=== PATIENT | female | born 1980 | race Caucasian/White ===

== ENCOUNTER 2018-07-10 09:06 | Day surgery (SDC) | payer MEDICARE, MEDICAID, SELFPAY ==
[2018-07-07 08:56] VITALS: BMI 48.6
[2018-07-10] VITALS (12 sets, daily range): BP systolic 97–118; BP diastolic 30–78; PULSE 60–94; RESP 10–20; TEMP 36.2–37.2; O2SAT 94–100; BMI 48.6
--- NOTE | 2018-07-10 | PATH_ITS ---
[facility] Accession Number: [id number] . 01 Material submitted: . UTERUS, BILATERAL FALLOPIAN TUBES . 02 Diagnosis: Uterus with Bilateral Fallopian Tubes, Supracervical Hysterectomy and Bilateral Salpingectomy: Proliferative endometrium with no diagnostic abnormality; Negative for atypical hyperplasia or malignancy. Multiple leiomyomata, up to 0.7 cm as measured on glass slide. Bilateral fallopian tubes with no diagnostic abnormality, no evidence of neoplasm. MRV/07/12/2018 . 02 Electronically signed: . Son Glass MD, PhD, Pathologist NPI- [id number] . 01 Gross description: . Received in formalin, labeled uterus, bilateral fallopian tubes, is a morcellated uterus (58 grams, 11.5 x 7.5 x 3.5 cm in aggregate) and two fimbriated fallopian tubes (tube #1: length-3.3 cm, diameter-0.5 cm; tube #2: length-2.7 cm, diameter-0.3 cm). The cervix and ovaries are absent. The specimen cannot be oriented and the endometrium and myometrium cannot be grossly measured. The parenchyma is brennan-white with a focally whorled appearance. The serosa is brennan smooth and shiny. The fallopian tubes have cabrera-purple smooth shiny serosa and brennan unremarkable lumens. Section code: (A1-A3) parenchyma, account representative; (A4) fallopian tube #1, account representative serial sections; (A5) fimbria #1, bivalved, entirely submitted; (A6) fallopian tube #2, account representative serial sections; (A7) fimbria #2, bivalved, entirely submitted. ([id number]) /MRV . 02 Pathologist provided ICD-10: D25.9, N92.0 . 02 [facility] . [id number] Performed at: 01 [facility] [address] [id number] MD Chu Jarrett MD Phone: [phone] Performed at: 02 [facility] [address] [place], [place] [id number] MD Laura Snyder MD Phone: [phone]
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
[2018-07-10] MEDS: LACTATED RINGERS 1,000 ML 100 ML IV ×3 (10:17→23:47)
--- NOTE | 2018-07-10 10:48 | SUR.PREOP ---
per dr araiza glucose finger stick not needed
--- NOTE | 2018-07-10 11:05 | PM.PREOP ---
Pre-operative Note Interval Note Pre-op Check: Yes History & Physical exam performed today by Physician Changes: No
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
[2018-07-10] MEDS: CEFAZOLIN 2 GM/100 ML FROZ.PIGGY IV (11:28)
--- NOTE | 2018-07-10 11:56 | SUR.OPER ---
Lithotomy on padded OR bed. Comer Pad Positioner under torso. Head on pillow, arms padded and tucked at sides. Legs secured in padded yellow fins stirrups. Lithotomy on padded OR bed. Comer Pad Positioner under torso. Head on pillow, arms padded and tucked at sides. Legs secured in padded yellow fins stirrups.
[2018-07-10] MEDS: BUPIVACAINE 0.5% W/ EPI (PF) VIAL 30 ML INJ (12:13)
[2018-07-10] MEDS: ROPIVACAINE 0.2% PF 2 MG/ML 10ML AMP 10 ML INJ (12:15)
[2018-07-10] MEDS: KETOROLAC 30 MG/ML VIAL IV ×3 (12:35→23:47)
[2018-07-10] MEDS: ACETAMINOPHEN IV 1,000 MG/100 ML VIAL 400 MG IV (12:40)
[2018-07-10] MEDS: HYDROMORPHONE 2 MG INJ 0.5 MG IV (13:32)
--- NOTE | 2018-07-10 14:07 | PC.NURSE ---
POST OP ARRIVAL 1400 - pt is awake, states some mild discomfort and point to transverse lower abd area, 2x2 w/telfa x3 are cdi, abd soft, denies nausea, catrachito ice chips, pt has concerns re blood clots as had hx of mult small PE several years ago, no longer on blood thinner past 3 years, discussed jennifer scd on now, ra 98%, bp 100/46, p 66.
[2018-07-10] MEDS: TRAZODONE 50 MG TABLET PO (21:59)
[2018-07-10] MEDS: DOCUSATE 250 MG CAPSULE PO (22:00)
--- NOTE | 2018-07-10 22:10 | PC.NURSE ---
assumed care of pt. Pt has been voiding a large amount. Pt uses call light and waits for assistance. pt complains of pain right at lower lap site, suprapubic site. Pt has two spots of blood to left dressing lap site, otherwise c.d.i. Pt given prns. and compliant with med passes. Pt stated torodol helped tremendously. Pt has ice pack to site. given warm blankets. uses call light. will continue to monitor pt for safety.
[2018-07-11] VITALS: BP 101/42; PULSE 86; RESP 18; TEMP 36.8; O2SAT 92
--- NOTE | 2018-07-11 04:58 | PC.NURSE ---
NOC Shift pt AOx4, appropriate, and receptive to care. IND in room and ambulated hallways IND at shift change. Reporting mild 4/10 pain in lower abdomen (suprapubic lap sit is sticking to panus and the pressure on top of the incision is causing pain). There are four lap sites, all covered with gauze and tegaderm; LLQ lap site has some mild shadowing outlined at shift change. Resting through most of NOC shift with a couple trips to BR (will call afterwards to empty hat).
[2018-07-11 05:18] VITALS: BP 103/53; PULSE 64; RESP 18; TEMP 36.7; O2SAT 95
[2018-07-11 07:15] LABS: Add Manual Diff / Slide Review NO; Basophils Percent Auto 0.1 % (0-2); Hematocrit 38.2 % (36-46); Hemoglobin 12.8 g/dL (12.0-16.0); Lymphocytes Percent Auto 5.4 % (25-40); Mean Corpuscular HGB Conc 33.4 % (30-36); Mean Corpuscular Hemoglobin 28.2 PG (26-34); Mean Corpuscular Volume 84.5 fL (80-100); Neutrophils Absolute Auto 14100 /uL (3000-5900); Neutrophils Percent Auto 91.5 % (50-75); Platelet Count 180 X10^3/uL (150-400); Red Blood Cell Count 4.52 X10^6/uL (4.0-5.2); Red Cell Distribution Width 13.4 % (11.6-14.8); White Blood Cell Count 15.4 X10^3/uL (4.5-11.0)
[2018-07-11 07:30] VITALS: BP 97/55; PULSE 56; RESP 18; TEMP 36.8; O2SAT 96
[2018-07-11] MEDS: TRAMADOL 50 MG TABLET 100 MG PO (08:57)
[2018-07-11] MEDS: DOCUSATE 250 MG CAPSULE PO (08:57)
[2018-07-11] MEDS: ESCITALOPRAM 10 MG TABLET 20 MG PO (08:57)
--- NOTE | 2018-07-11 09:08 | PM.GYNOP.1 ---
Operative Date/Time/Diagnoses Date of procedure: 07/10/18 Time of procedure: 12:45 Pre-op diagnosis: Menorrhagia Pelvic pain Polycystic ovaries Post-op diagnosis: same Procedure: Procedures Operation Date: 07/10/18 10:45 Actual Procedures Side Surgeon p Laparoscopic Supracervical Hysterectomy w/bilat salpingectomy Not Applicable Sujey Crenshaw MD Indications: Menorrhagia Pelvic pain Polycystic ovary Surgeon: Sujey Crenshaw Mold Mechanic: Azam Lewis Anesthesia Type: General Operative Notes Findings: 8 week size uterus Polycystic ovaries Tubes status post ligation bilaterally Normal liver, gallbladder, and appendix Closure Type: primary Specimen(s): portion of left tube, portion of right tube and uterus Applied: catheter (Removed at the end of the case) Estimated blood loss (mL): 75 Blood products transfused: none Procedure in detail: The patient was taken to the operating room where she was placed in the dorsal supine position. After adequate general endotracheal anesthesia was achieved, she was placed in the dorsal lithotomy position, and prepped and draped in the usual sterile fashion. A timeout was performed. A bivalve speculum was placed into the vagina and the anterior lip of the cervix grasped with a single-tooth tenaculum. The cervical os was sequentially dilated until the ZUMI uterine manipulator could pass easily into the endometrial cavity. The single-tooth tenaculum was removed from the anterior lip of the cervix, and the bivalve speculum was removed from the vagina. Attention was then turned to the abdomen where 6 mL of half percent Marcaine with epinephrine were injected in the umbilical fold. A 5 mm incision was made. The Verhees needle was placed into the peritoneal cavity, and its placement confirmed by aspiration and drop test. The Verhees needle was removed. A 5 mm trocar was placed without difficulty. 2 other incisions were made midway between the pubic symphysis and umbilicus after 5 mL of half percent Marcaine with epinephrine were injected. These were 5 mm incisions. Two 5 mm trochars were placed under direct visualization. The right tube was grasped with an atraumatic grasper. Using the plasma kinetic with settings of 40 W the mesosolpinx was cauterized and cut all the way down to the cornua of the uterus. The cornua of the uterus was then grasped with an atraumatic grasper. The utero-ovarian ligaments were cauterized and cut. The round ligament and broad ligament was cauterized and cut with plasma kinetic. Hemostasis was achieved. The bladder flap was created using the plasma kinetic with cautery and cut group home across. The uterine arteries on the right side were extensively cauterized with plasma kinetic. All of this was repeated on the left side. The remainder of the bladder flap was created using the plasma kinetic, and the bladder taken down off the lower uterine segment and cervix. Using the L[place]oop, the cervix was amputated from the uterus 2 cm above the uterosacral ligaments, after the ZUMI uterine manipulator was removed from the uterus. There was a small amount of bleeding noted from the posterior edge of the cervix and the left side of the cervix, and this was cauterized for hemostasis. A sponge stick was placed into the vagina. 6 mL of half percent Marcaine with epinephrine were injected above the pubic symphysis. A 12 mm trocar was placed. An Endobag was placed through the suprapubic trocar and the uterus placed into the Endobag. The trocar was removed. The Honag placed into the endobag. The uterus was hand morcellated in approximately 7 pieces. The Endobag was removed from the peritoneal cavity. The pelvis was copiously irrigated with warm normal saline. No bleeding was noted. The instruments were removed from the abdomen. The CO2 was allowed to escape. The suprapubic incision was closed on the fascia with 0 Vicryl. The subcutaneous tissue was closed with 2 simple interrupted sutures of 3 0 Vicryl. All of the incisions were closed with 4-0 undyed Vicryl in a subcuticular fashion. Steri-Strips, 2 x 2, and op site were placed. The moistened sponge stick was removed from the vagina. Sponge, lap, and instrument counts were correct x-2. The patient tolerated the procedure well, was taken to PACU in stable condition. Complications: none Post-operative Condition: stable Disposition: PACU Plan for aftercare: To acute care after recovery
--- NOTE | 2018-07-11 10:14 | PC.NURSE ---
AM NOTE - awakens easily, states slept well last night, 02 sat 92% currently, bs dim, coarse, assist x 1 person w/fww to br w/void and to chair for breakfast, denies discomfort, RT in this am for tmt and to discuss plan for possible home 02 and use of cpap.
--- NOTE | 2018-07-11 10:19 | PC.NURSE ---
Addendum entered by Heather Salas R.N. 07/11/18 11:34: DC - pain adequately managed with earlier tramadol, belongings gathered, hep lock dc'd, valuables from safe returned, reviewed dc instructions and script provided, tsf to [place] and braille translator escorted to spouse's car. Original Note: AM NOTE - awakens easily, states discomfort lower abd 4 on scale 0/10, catrachito gen diet, hypo bt present, states no flatus yet, no nausea, voiding w/o discomfort or difficulty, discussed pain mgt and given tramadol 100mg after breakfast for pain mgt prior to dc home today. dsg x4 cdi.
== END 2018-07-11 11:30 | disposition home or self-care (01) ==
LOC: OR 13:55 → AC 13:56
PROVIDERS: PCP Family Medicine; Visit Provider Obstetrics & Gynecology
PROC: 0UT94ZL Resection of Uterus, Supracervical, Percutaneous Endoscopic Approach (ICD-10-PCS; CPT 58542; principal; 2018-07-10 10:45)
DX: N92.0 Excessive and frequent menstruation with regular cycle (principal); N94.6 Dysmenorrhea, unspecified; E28.2 Polycystic ovarian syndrome; Z87.891 Personal history of nicotine dependence; E11.9 Type 2 diabetes mellitus without complications; E66.9 Obesity, unspecified; Z68.42 Body mass index [BMI] 45.0-49.9, adult; Z79.84 Long term (current) use of oral hypoglycemic drugs; D25.9 Leiomyoma of uterus, unspecified
CPT/HCPCS: 58542; 36415; 85025; 88307; J0131; J0330; J0690; J1100; J1170; J1885; J2250; J2405; J2704; J2795; J3010

== ENCOUNTER 2018-08-11 19:38 | Emergency (ER) | payer MEDICARE, MEDICAID, SELFPAY ==
[2018-07-10 14:09] VITALS: BMI 48.6
[2018-08-11 19:47] VITALS: BP 129/90; PULSE 95; RESP 18; TEMP 36.6; O2SAT 98
--- NOTE | 2018-08-11 20:55 | DI.RAD.S_ITS ---
PROCEDURE: XR RIBS LT MIN 3V W CXR1V INDICATIONS: fall with left sided rib pain, hematoma TECHNIQUE: 2 views of the left ribs were acquired, along with a single view chest. COMPARISON: [facility], , CHEST 2VW, 02/09/2013, 19:26. FINDINGS: Surgical changes and devices: None. Bones and chest wall: Evaluation is limited by motion artifact. No displaced rib fracture identified. No suspicious bony lesions. Overlying soft tissues appear unremarkable. Lungs and pleura: No pleural effusions or pneumothorax. Lungs appear clear. Mediastinum: Mediastinal contours appear normal. Heart size is normal. IMPRESSION: 1. Limited study demonstrates no displaced rib fracture. Dictated by: Chu Green M.D. on 08/11/2018 at 21:26 Approved by: Chu Green M.D. on 08/11/2018 at 21:27
--- NOTE | 2018-08-11 20:56 | PC.NURSE ---
standby with Provider during assessment of the right breast. Dime size purple/red lump present. Provider explained nothing there to drain. Patient completed 10day course of abx by PCP.
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
[2018-08-11 22:05] VITALS: BP 112/72; PULSE 79; RESP 20; O2SAT 95
== END 2018-08-11 22:06 | disposition home or self-care (01) ==
PROVIDERS: Emergency Provider Emergency Medicine; PCP Family Medicine
DX: N61.1 Abscess of the breast and nipple (principal)
CPT/HCPCS: 71101; 99282; 99283

== ENCOUNTER → 2019-04-04 15:21 | Outpatient (CLI) | payer MEDICARE, MEDICAID, SELFPAY ==
[2018-07-10 14:09] VITALS: BMI 48.6
== END ==
PROVIDERS: PCP Family Medicine; Visit Provider Family Medicine
DX: L73.9 Follicular disorder, unspecified (principal)
CPT/HCPCS: 87070; 87075; 87077; 87186; 87205

== ENCOUNTER 2019-04-13 20:13 | Emergency (ER) | payer MEDICARE, MEDICAID, OTHER, SELFPAY ==
[2018-07-10 14:09] VITALS: BMI 48.6
[2019-04-13 20:16] VITALS: BP 135/96; PULSE 107; RESP 18; TEMP 36.6; O2SAT 97; BMI 45.0
[2019-04-13 20:33] LABS: Bacteria Urine None Seen
[2019-04-13 20:42] LABS: Culture Indicated Urine Cult Not Indicated; RBC Urine 5-10/HPF (0-5/HPF); Squamous Epithelial Cell Urine 5-10 /HPF (0-5/HPF); WBC Urine 5-10/HPF (0-5/HPF)
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
[2019-04-13] MEDS: HYDROCODONE/ACET 5/325 PREPACK 1 BOTTLE MISC (21:03)
[2019-04-13] MEDS: cephALEXin 250 MG PREPACK 1 BOTTLE MISC (21:03)
[2019-04-13] MEDS: ONDANSETRON 4 MG ODT PREPACK 1 BOTTLE MISC (21:03)
== END 2019-04-13 21:08 | disposition home or self-care (01) ==
PROVIDERS: Emergency Provider Emergency Medicine; PCP Family Medicine
DX: N12 Tubulo-interstitial nephritis, not specified as acute or chronic (principal)
CPT/HCPCS: 81003; 81015; 99282; 99283

== ENCOUNTER → 2019-04-25 15:20 | Outpatient (CLI) | payer MEDICARE, MEDICAID, SELFPAY ==
[2018-07-10 14:09] VITALS: BMI 48.6
== END ==
PROVIDERS: PCP Family Medicine; Visit Provider Specialist
DX: N75.1 Abscess of Bartholin's gland (principal)
CPT/HCPCS: 87070; 87075; 87077; 87186; 87205

== ENCOUNTER 2019-04-27 08:20 | Emergency (ER) | payer MEDICARE, MEDICAID, OTHER, SELFPAY ==
[2018-07-10 14:09] VITALS: BMI 48.6
[2019-04-27 08:28] VITALS: BP 120/102; PULSE 102; PULSE 82; RESP 16; RESP 20; TEMP 36.8; TEMP 37; O2SAT 100; O2SAT 98; BMI 42.9
[2019-04-27 09:03] LABS: Add Manual Diff / Slide Review NO; Basophils Absolute Auto 100 /uL (0-100); Basophils Percent Auto 0.8 % (0-2); Eosinophils Absolute Auto 100 /uL (0-450); Eosinophils Percent Auto 1.1 % (2-4); Lymphocytes Absolute Auto 1500 /uL (1100-4500); Lymphocytes Percent Auto 18.4 % (25-40); Mean Corpuscular HGB Conc 34.9 % (30-36); Mean Corpuscular Hemoglobin 29.1 PG (26-34); Mean Corpuscular Volume 83.5 fL (80-100); Monocytes Absolute Auto 300 /uL (0-900); Monocytes Percent Auto 3.5 % (3-14); Neutrophils Absolute Auto 6300 /uL (1500-7000); Neutrophils Percent Auto 76.2 % (50-75); Platelet Count 200 X10^3/uL (150-400); Red Blood Cell Count 4.79 X10^6/uL (4.0-5.2); Red Cell Distribution Width 12.8 % (11.6-14.8); White Blood Cell Count 8.2 X10^3/uL (4.5-11.0)
[2019-04-27] MEDS: KETOROLAC 60 MG/2 ML VIAL 15 MG IV (09:04)
[2019-04-27] MEDS: diphenhydrAMINE 50 MG/ML VIAL 25 MG IV (09:04)
[2019-04-27] MEDS: FAMOTIDINE 20 MG/50 ML PIGGYBACK 200 MG IV (09:04)
[2019-04-27] MEDS: SODIUM CHLORIDE 0.9% 1,000 ML 1000 ML IV (09:05)
[2019-04-27] MEDS: methylPREDNISolone 125 MG/2 ML VIAL IV (09:05)
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
[2019-04-27 09:15] LABS: BUN Creatinine Ratio 25.7 (6-22); Blood Urea Nitrogen 18 mg/dL (7-17); Calcium 9.5 mg/dL (8.4-10.2); Carbon Dioxide 24 mmol/L (22-32); Chloride 102 mmol/L (98-107); Estimated Glomerular Filt Rate > 60.0 mL/min (>60); Glucose 105 mg/dL (70-100); HEMOLYSIS 21 (0-50); Potassium 4.1 mmol/L (3.4-5.1); Sodium 138 mmol/L (137-145)
[2019-04-27 09:54] VITALS: BP 110/71; PULSE 76; RESP 22; O2SAT 96
[2019-04-27 10:53] VITALS: BP 97/51; PULSE 70; RESP 18; O2SAT 96
== END 2019-04-27 10:54 | disposition home or self-care (01) ==
PROVIDERS: Emergency Provider Emergency Medicine; PCP Family Medicine
DX: T78.40XA Allergy, unspecified, initial encounter (principal)
CPT/HCPCS: 36591; 80048; 85025; 96361; 96374; 96375; 99283; 99284; J1200; J1885; J2930

== ENCOUNTER 2020-01-08 20:45 | Emergency (ER) | payer MEDICARE, MEDICAID, SELFPAY ==
[2018-07-10 14:09] VITALS: BMI 48.6
[2020-01-08 20:45] VITALS: PULSE 87; RESP 18; TEMP 37.1; O2SAT 98; BMI 45.6
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
--- NOTE | 2020-01-08 20:53 | DI.RAD.S_ITS ---
PROCEDURE: XR CHEST 1V INDICATIONS: chest pain TECHNIQUE: One view of the chest was acquired. COMPARISON: None. FINDINGS: Surgical changes and devices: None. Lungs and pleura: Lungs are clear. No pleural effusions or pneumothorax. Mediastinum: Mediastinal contours appear normal. Heart size is normal. Bones and chest wall: No suspicious bony lesions. Overlying soft tissues appear unremarkable. IMPRESSION: No evidence acute pulmonary process. Dictated by: Eduardo Chapman M.D. on 01/08/2020 at 21:06 Approved by: Eduardo Chapman M.D. on 01/08/2020 at 21:07
[2020-01-08 21:25] LABS: Add Manual Diff / Slide Review NO; Basophils Absolute Auto 0 /uL (0-100); Basophils Percent Auto 0.3 % (0-2); Eosinophils Absolute Auto 0 /uL (0-450); Eosinophils Percent Auto 0.3 % (2-4); Hematocrit 41.2 % (36-46); Hemoglobin 14.4 g/dL (12.0-16.0); Lymphocytes Absolute Auto 1500 /uL (1100-4500); Lymphocytes Percent Auto 26.3 % (25-40); Mean Corpuscular HGB Conc 34.9 % (30-36); Monocytes Absolute Auto 300 /uL (0-900); Neutrophils Absolute Auto 3800 /uL (1500-7000); Neutrophils Percent Auto 67.1 % (50-75); Platelet Count 144 X10^3/uL (150-400); Red Blood Cell Count 4.97 X10^6/uL (4.0-5.2); Red Cell Distribution Width 12.6 % (11.6-14.8); White Blood Cell Count 5.7 X10^3/uL (4.5-11.0)
[2020-01-08 21:27] VITALS: BP 128/88; PULSE 84; RESP 18; O2SAT 98
[2020-01-08 21:27] LABS: INR 1.1 (0.9-1.3); Prothrombin Time 12.3 SECONDS (10.1-12.7)
[2020-01-08 21:29] LABS: PTT Partial Thromboplastin Tim 31 SECONDS (26.4-36.2)
[2020-01-08 21:32] LABS: Alanine Aminotransferase 53 IU/L (<35); Albumin 4.6 g/dL (3.5-5.0); Albumin Globulin Ratio 1.3 (1.0-2.8); Alkaline Phosphatase 44 U/L (38-126); Aspartate Aminotransferase 38 IU/L (14-36); BUN Creatinine Ratio 13.8 (6-22); Bilirubin Total 0.5 mg/dL (0.2-1.3); Blood Urea Nitrogen 9 mg/dL (7-17); Calcium 9.5 mg/dL (8.4-10.2); Carbon Dioxide 28 mmol/L (22-32); Chloride 102 mmol/L (98-107); Creatine Kinase 35 U/L (30-135); Estimated Glomerular Filt Rate > 60.0 mL/min (>60); Globulin 3.5 g/dL (1.7-4.1); Glucose 99 mg/dL (70-100); HEMOLYSIS 16 (0-50); Lipase 69 U/L (23-300); Potassium 3.8 mmol/L (3.4-5.1); Sodium 140 mmol/L (137-145); Total Protein 8.1 g/dL (6.3-8.2)
[2020-01-08 21:43] LABS: Troponin I < 0.012 ng/mL (0.01-0.034)
[2020-01-08 21:57] LABS: D Dimer 449 ng/mL (<230)
--- NOTE | 2020-01-08 22:44 | DI.CT.S_ITS ---
PROCEDURE: CT ANGIO CHEST PE PROTOCOL INDICATIONS: Prior pulmonary embolism, elevated D-dimer, recurrent symptoms TECHNIQUE: After the administration of intravenous contrast, 2 mm thick sections acquired from the pulmonary apices to the posterior costophrenic angles. 3-dimensional maximum intensity projection (MIP) coronal and sagittal reformats were then acquired through the thorax. For radiation dose reduction, the following was used: automated exposure control, adjustment of mA and/or kV according to patient size. COMPARISON: [facility], CT, CHEST ANGIO-PE, 09/30/2009, 14:49. CT, CHEST ANGIO-PE, 09/03/2010, 17:20. FINDINGS: Image quality: Excellent. Pulmonary arteries: Pulmonary arteries are normal in size, and demonstrate no intraluminal filling defects to suggest central pulmonary embolism. Lungs and pleura: Lungs are clear. Mild heterogeneous lung attenuation noted in the lung bases in the region of mild to wall thickening No pleural effusions or pneumothorax. Central and peripheral airways are patent. Mediastinum: Heart size is normal, without pericardial effusion. No mediastinal or hilar adenopathy. Thoracic aorta is normal in caliber and enhancement. Esophagus is normal in caliber, without hiatal hernia. Bones and chest wall: No suspicious bony lesions. Ribs and thoracic spine appear intact throughout. Mild spine degenerative disc disease and facet arthropathy.Thyroid gland is normal where visualized. No axillary or supraclavicular adenopathy. Abdomen: Diffuse fatty infiltration of the liver. 1.1 cm enhancing lesion in right lobe of the liver (segment ) which may represent hemangioma.. IMPRESSION: 1. No pulmonary embolus. 2. No other consolidation or pleural fluid collections. 3. Mild heterogeneous lung attenuation with mild bronchial wall thickening involving the lung bases concerning for mild bronchitis or reactive airway disease. 4 per 1.1 cm enhancing lesion in right lobe liver which may represent a hemangioma, however lesion has nonspecific imaging characteristics. Recommend abdominal ultrasound for further characterization. Dictated by: Vandana Jones MD, PhD on 01/09/2020 at 7:48 Approved by: Vandana Jones MD, PhD on 01/09/2020 at 7:55
[2020-01-08] MEDS: DICYCLOMINE 10 MG CAPSULE 20 MG PO (23:25)
[2020-01-08 23:31] VITALS: BP 160/97; PULSE 86; RESP 15; O2SAT 96
[2020-01-08 23:50] LABS: Campylobacter Not Detected (Not Detect); Clostridium difficile toxin AB Not Detected (Not Detect); Enteroaggregative E.coli Not Detected (Not Detect); Plesiomonsa shigelloides Not Detected (Not Detect); Vibrio Not Detected (Not Detect); Vibrio cholerae Not Detected (Not Detect); Yersinia enterocolitica Not Detected (Not Detect)
[2020-01-08 23:51] LABS: Adenovirus F 40/41 Not Detected (Not Detect); Astrovirus Not Detected (Not Detect); Cryptosporidium Not Detected (Not Detect); Cyclospora cayetanensis Not Detected (Not Detect); Entamoeba histolytica Not Detected (Not Detect); Enterotoxigenic E.coli It/st Not Detected (Not Detect); Giardia lamblia Not Detected (Not Detect); Norovirus GI/GII Not Detected (Not Detect); Rotavirus A Not Detected (Not Detect); Sapovirus Not Detected (Not Detect); Shiga-like toxin-prod E.coli Not Detected (Not Detect); Shigella/Enteroinvasive E.coli Not Detected (Not Detect)
[2020-01-08 23:52] LABS: Salmonella Detected (Not Detect)
[2020-01-08 23:53] LABS: Enteropathogenic E.coli Detected (Not Detect)
[2020-01-09 00:30] VITALS: BP 123/70; PULSE 63; RESP 16; O2SAT 99
[2020-01-09] MEDS: CIPROFLOXACIN 500 MG TABLET PO (00:40)
== END 2020-01-09 00:47 | disposition home or self-care (01) ==
PROVIDERS: Emergency Provider Emergency Medicine; PCP Family Medicine
DX: A02.9 Salmonella infection, unspecified (principal); A04.4 Other intestinal Escherichia coli infections; R06.00 Dyspnea, unspecified; R07.9 Chest pain, unspecified; K76.9 Liver disease, unspecified; Z86.711 Personal history of pulmonary embolism
CPT/HCPCS: 36415; 71045; 71275; 80053; 82550; 83690; 84484; 85025; 85379; 85610; 85730; 87507; 93005; 99284; 99285; Q9967

== ENCOUNTER → 2020-01-11 14:34 | Outpatient (CLI) | payer MEDICARE, MEDICAID, SELFPAY ==
[2018-07-10 14:09] VITALS: BMI 48.6
--- NOTE | 2020-01-11 14:36 | DI.US.S_ITS ---
PROCEDURE: US ABDOMEN LIMITED INDICATIONS: F/U LIVER LESION TECHNIQUE: Real-time focused scanning was performed of the abdomen, with image documentation. COMPARISON: [facility], CT, CT ANGIO CHEST PE PROTOCOL, 01/08/2020, 22:48. FINDINGS: The liver demonstrates normal size. The liver demonstrates generalized increased echogenicity. This decreases ultrasound sensitivity for detection of hepatic masses. Within the right lobe of the liver, there is a vague heterogeneous lesion, without abnormal vascularity. No findings of gallstones or sludge are seen. The gallbladder wall is not thickened, measuring 3 mm or less. No specific pericholecystic fluid is seen. The sonographic Ramirez sign is negative. There is no biliary dilatation, the common bile duct measures 3 mm. The visualized pancreas is unremarkable. IMPRESSION: Poor visualization by ultrasound of the hypervascular liver lesion that can be seen on the prior CT dated 01/08/20. If clinically appropriate, please consider a dedicated liver protocol MRI for further evaluation (assuming that there is no contraindication). Fatty liver infiltration is seen. Dictated by: Kushal Goncalves M.D. on 01/11/2020 at 15:19 Approved by: Kushal Goncalves M.D. on 01/11/2020 at 15:22
== END ==
PROVIDERS: PCP Family Medicine; Referring Provider Family Medicine; Visit Provider Family Medicine
DX: K76.9 Liver disease, unspecified (principal); K76.0 Fatty (change of) liver, not elsewhere classified
CPT/HCPCS: 76705

== ENCOUNTER → 2020-01-24 15:53 | Outpatient (CLI) | payer MEDICARE, MEDICAID, SELFPAY ==
[2018-07-10 14:09] VITALS: BMI 48.6
--- NOTE | 2020-01-24 15:55 | DI.MRI.S_ITS ---
PROCEDURE: MR ABDOMEN WO/W CON INDICATIONS: liver lesion f/u TECHNIQUE: Coronal HASTE, axial 2D FLASH in- and [id number]; axial breath-hold T2 FSE. Dynamic axial VIBE during the administration of contrast; post-contrast coronal VIBE or 2D FLASH with fat saturation from the hepatic dome to the iliac crests. Optional diffusion weighted imaging and ADC may be performed. COMPARISON: [facility], CT, CHEST ANGIO-PE, 06/21/2009, 21:51. [facility], CT, CHEST ANGIO-PE, 09/03/2010, 17:20. [facility], CT, CHEST ANGIO-PE, 09/30/2009, 14:49. CT, CT ANGIO CHEST PE PROTOCOL, 01/08/2020, 22:48. [facility], , ABDOMEN LIMITED, 01/11/2020, 14:59. FINDINGS: Image quality: Excellent. Lung bases: No basal pleural effusions. Heart size is normal. Solid organs: Within segment 6 of the right hepatic lobe, there is an oval T2 hyperintense well-circumscribed lesion demonstrated corresponding to the finding on prior CT. This measures up to 1.0 x 0.9 cm in transverse dimension. Following contrast administration, there is hypervascular enhancement during the arterial, portal venous, and delayed phases. Findings are compatible with a hemangioma. No other discrete hepatic mass identified. The gallbladder appears within normal limits. Biliary system is non dilated. Pancreas is normal in morphology. Spleen is normal in size and enhancement. No adrenal nodules. Both kidneys demonstrate normal size and enhancement, without hydronephrosis. Nodes and vessels: No retroperitoneal or mesenteric adenopathy by size criteria. Aorta and inferior vena cava are normal in size. Bowel and peritoneum: Visualized bowel loops are normal in caliber. No free fluid. Bones and soft tissues: No ventral hernias. Bone marrow is normal in overall signal. IMPRESSION: 1. Small hypervascular hepatic lesion with persistent hypervascularity on the delayed phase most likely representing a hemangioma. The differential includes a hepatic adenoma. Dictated by: Chu Green M.D. on 01/25/2020 at 11:19 Approved by: Chu Green M.D. on 01/25/2020 at 11:28
== END ==
PROVIDERS: PCP Family Medicine; Referring Provider Family Medicine; Visit Provider Family Medicine
DX: K76.9 Liver disease, unspecified (principal)
CPT/HCPCS: 74183; A9579

== ENCOUNTER → 2020-07-29 17:05 | Outpatient (CLI) | payer MEDICARE, MEDICAID, SELFPAY ==
[2018-07-10 14:09] VITALS: BMI 48.6
--- NOTE | 2020-07-29 | DI.RAD.S_ITS ---
PROCEDURE: XR LUMBAR SPINE 2-3V INDICATIONS: Low Back Pain TECHNIQUE: 3 views of the lumbar spine were acquired. COMPARISON: [facility], , L-SPINE 2-3 VIEWS, 08/11/2009, 17:50. FINDINGS: Bones: 5 [id number] vertebrae are present. There is mild leftward curvature of the thoracolumbar spine, likely positional. No vertebral body compression fractures. No suspicious bony lesions. Soft tissues: Overlying bowel gas pattern is normal. No suspicious soft tissue calcifications. IMPRESSION: 1. No acute abnormality of the lumbar spine. 2. Mild leftward curvature of the lumbar spine likely positional. Dictated by: Chuck Ramos M.D. on 07/29/2020 at 18:11 Approved by: Chuck Ramos M.D. on 07/29/2020 at 18:13
== END ==
PROVIDERS: PCP Family Medicine; Referring Provider Family Medicine; Visit Provider Family Medicine
DX: M43.9 Deforming dorsopathy, unspecified (principal); M54.5 Low back pain
CPT/HCPCS: 72100

== ENCOUNTER 2021-01-07 09:45 | Outpatient (RCR) | payer MEDICARE, MEDICAID, SELFPAY ==
[2018-07-10 14:09] VITALS: BMI 48.6
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
--- NOTE | 2020-09-17 16:32 | PT.OPPOC ---
Physical, Occupational & Speech Therapy At [facility] Current Diagnoses Pain in right hip (09/17/20) Pain in left hip (09/17/20) Lumbago with sciatica, unspecified side (09/17/20) Low back pain (09/17/20) Muscle weakness (generalized) (09/17/20) Visit Care Team Role Provider Type Jesse Dickerson DO Attending Provider Physician Primary Care Provider Referring Provider Specialty: [facility] Address: [address] [place] [address] Email: [email or web address] Of Care PT-OP-T Assessment and Plan Start: 09/17/20 14:50 Freq: Status: Active Protocol: Document 09/17/20 11:15 DCW (Rec: 09/17/20 16:31 DCW [id number]) Physical Therapy Assessment Rehab Potential Rehabilitation Potential Fair Evaluation Complexity Number of Personal Factors/Comorbidities 3 or More Number of Body Systems Impaired 4 or More Clinical Presentation at Evaluation Unstable Impairments Impairments Activity Tolerance,Functional Activities,Functional Mobility ,Pain,ROM,Soft Tissue Mobility ,Strength,Tone Goals Three Impairment LE weakness bilaterally First Responder Goal (LTG) Bilateral hip and knee MMT at least 4/5 in all planes LTG Duration 11/15/20 Two Impairment Pt suffers from severe pain after shopping due to extended stance time First Responder Goal (LTG) Pt to tolerate combination of standing and walking for one hour without increased pain over the following 24 hours to return to normal ADL of shopping for food. LTG Duration 11/15/20 One Impairment Pt does not have an appropriate home exercise program Short Term Goal (STG) Pt to be independent and compliant with an appropriate HEP STG Duration 10/15/20 Assessment Summary Assessment Pt presents with signs and symptoms suggestive of multifactoral causes of radicular low back and hip pain. Pt's complaints of general shooting pain, tingling, and weakness down both legs is suggestive of piriformis syndrome, however she also complains of occasional additional radiating pain in a very specific L4 dermatome, which may also indicate an impingement at the nerve root. Pt overall presents with moderate-severe tone throughout her posterior lumbar paraspinals and posterior hips. Pt should benefit from skilled therapy focusing on decreasing tone and improving flexibility to decrease piriformis symptoms and improve LE strength. If pt does not progress as expected , she may benefit from an MRI in the future. Physical Therapy Plan Frequency and Duration Frequency of Treatment 2x/Week Duration of Treatment Two months Plan of Care Start Date 09/17/20 Plan of Care End Date 11/15/20 Therapeutic Interventions Therapeutic Interventions Home Exercise Program,Joint Mobilizations,Manual Therapy, Patient/Caregiver Education, Self-Care/Home Management,Soft Tissue Mobilization, Therapeutic Activities, Therapeutic Exercises Modalities Cold Pack/Ice Massage,Electric Stimulation,Hot Packs, Ultrasound Next Visit Focus/Plan Next Note Type Treatment Note Next Visit Plan STM, Flexibility, pain-control modalities, LE strengthening, activity tolerance Plan of Care Dates Plan of Care Start Date 09/17/20 Plan of Care End Date 11/15/20 Electronically Signed by: Jarred Galeano, PT 09/17/20 1297 Please Sign and Return: I have reviewed this Plan of Care and certify that the skilled therapy services above are required to meet the patient?s needs. Physician Signature Date Printed Name and Credentials Clinical Instructor Signature Printed Name and Credentials
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
--- NOTE | 2020-10-09 13:00 | PT-OP ANOTE ---
Pt did not show for today's appt. Voice message states the number is temporarily unavailable, so unable to leave a message.
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
--- NOTE | 2020-11-13 09:15 | PT-OP ANOTE ---
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
--- NOTE | 2020-12-01 09:17 | PT-OP ANOTE ---
Pt no show today. Called pt and pt stated she is not aware of her appt today. She also stated she has been dealing with some medical issues lately and she still has residual discomfort at hip and back and would like to continue PT. Reminded her next appt is 12/04 1030 and pt agreed to attend
--- NOTE | 2020-12-04 12:13 | PT.OPPOC ---
Physical, Occupational & Speech Therapy At [facility] Current Diagnoses Pain in right hip (12/04/20) Pain in left hip (12/04/20) Lumbago with sciatica, unspecified side (12/04/20) Low back pain (12/04/20) Muscle weakness (generalized) (12/04/20) Visit Care Team Role Provider Type Jesse Dicekrson DO Attending Provider Physician Primary Care Provider Referring Provider Specialty: [facility] Address: [address] [place] [address] Email: [email or web address] Plan Of Care PT-OP-T Assessment and Plan Start: 09/17/20 14:50 Freq: Status: Active Protocol: Document 12/04/20 10:33 HH (Rec: 12/04/20 11:14 [id number]) Physical Therapy Assessment Goals Three Impairment LE weakness bilaterally Linker Up Goal (LTG) Bilateral hip and knee MMT at least 4/5 in all planes LTG Duration 11/15/20 Two Impairment Pt suffers from severe pain after shopping due to extended stance time Short Term Goal (STG) 12/04 cont in progress pt is able to stand + walk for hours but she does have pain AFTER. Longterm Goal (LTG) Pt to tolerate combination of standing and walking for one hour without increased pain over the following 24 hours to return to normal ADL of shopping for food. LTG Duration 11/15/20 One Impairment Pt does not have an appropriate home exercise program Short Term Goal (STG) Pt to be independent and compliant with an appropriate HEP STG Duration 10/15/20 Linker Up Goal (LTG) 12/04 Pt does the deadbug and back stretches occasionally Assessment Summary Assessment Pt has not seen PT for the past 3 weeks d/t POC . She stated she is doing better but does feel the pain occasionally depends on her task. She is able to tolerate more in general. She will cont benefit from skilled therapy to focus primarily core stability, hip strengthening at this point. Physical Therapy Plan Frequency and Duration Frequency of Treatment 1x/Week Duration of Treatment 6 weeks Plan of Care Start Date 12/04/20 Plan of Care End Date 01/18/21 Therapeutic Interventions Therapeutic Interventions Home Exercise Program,Joint Mobilizations,Manual Therapy, Patient/Caregiver Education, Self-Care/Home Management,Soft Tissue Mobilization, Therapeutic Activities, Therapeutic Exercises Modalities Cold Pack/Ice Massage,Electric Stimulation,Hot Packs, Ultrasound Next Visit Focus/Plan Next Note Type Treatment Note Next Visit Plan Next assess HEP review see therex: added bug modified LLE ext range for home application. Continue focusing on core engagement, manual therapy, stretching, and ending with IFC, w/ hot pack if needed. Plan of Care Dates Plan of Care Start Date 12/04/20 Plan of Care End Date 01/18/21 Electronically Signed by: Tesha Bryant, PT 12/04/20 5818 Please Sign and Return: I have reviewed this Plan of Care and certify that the skilled therapy services above are required to meet the patient?s needs. Physician Signature Date Printed Name and Credentials Clinical Instructor Signature Printed Name and Credentials
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
--- NOTE | 2020-12-08 09:06 | PT-OP ANOTE ---
Pt came to appt at the same time as her 2 step children appt for PT eval. However, pt is required to attend both evaluation sessions as their guardian, therefore, pt has to cancel her appt today.
--- NOTE | 2020-12-16 08:31 | PT-OP ANOTE ---
Addendum entered and electronically signed by Chayo Mahoney PTA 12/16/20 08:48: STUDIO ASSOCIATE called pt back, she said she accidently misread her appt schedule looked at her daughter's appt times by accident, has anxiety at times and just decided to leave when arrived. Confirmed 12/24 at 0945 appt next. Original Note: STUDIO ASSOCIATE called pt regarding 15 min late for appt, pt stated was in parkinglot and her printed schedule states appt is 0845 not 0815. STUDIO ASSOCIATE said could see for 30 min remaining of appt time with pt in agreement. STUDIO ASSOCIATE did not get up to front desk person to let them know for scheduling purposes before pt came in building. When pt came in was told by schedulers appt already showed appt, pt responded spoke with STUDIO ASSOCIATE to see for remainder of appt time. Pt decided to leave, stressed out with miscommunication, per schedulers report when STUDIO ASSOCIATE came up front to get pt.
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
--- NOTE | 2020-12-30 16:44 | PT-OP ANOTE ---
Pt no show for 0900 appt today. Called pt and she stated she was told by her children's PT yesterday that her appt was at 0945. I clarified with pt that her appt was set at 0900 since a long time ago and her children's PT did also remind her 0900 appointment. Pt refused to check on her paper-form schedule and she was very upset regarding the scheduling. Reminded her again her upcoming and last appt would be 01/07 0945. Will discuss possible DC since pt's multiple cancellations and no shows.
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
== END 2021-01-08 07:38 | disposition home or self-care (01) ==
LOC: PHYS 09:45
PROVIDERS: PCP Family Medicine; Referring Provider Family Medicine; Visit Provider Family Medicine
DX: M54.40 Lumbago with sciatica, unspecified side (principal); M62.81 Muscle weakness (generalized); M25.551 Pain in right hip; M25.552 Pain in left hip
CPT/HCPCS: 97014; 97110; 97140; 97163; 97530; G0283

== ENCOUNTER → 2021-02-04 10:59 | Outpatient (CLI) | payer MEDICARE, MEDICAID, SELFPAY ==
[2018-07-10 14:09] VITALS: BMI 48.6
[2021-02-04 11:30] LABS: Hemoglobin A1C% w Est Avg Glu 5.3 % (4.0-6.0)
[2021-02-04 11:51] LABS: Alanine Aminotransferase 33 IU/L (<35); Albumin 4.4 g/dL (3.5-5.0); Albumin Globulin Ratio 1.3 (1.0-2.8); Alkaline Phosphatase 50 U/L (38-126); Aspartate Aminotransferase 32 IU/L (14-36); Bilirubin Total 0.4 mg/dL (0.2-1.3); Blood Urea Nitrogen 9 mg/dL (7-17); Calcium 9.7 mg/dL (8.4-10.2); Carbon Dioxide 26 mmol/L (22-32); Chloride 105 mmol/L (98-107); Cholesterol 193 mg/dL (140-199); Estimated Glomerular Filt Rate > 60.0 mL/min (>60); Globulin 3.5 g/dL (1.7-4.1); Glucose 102 mg/dL (70-100); HDL Cholesterol 41 mg/dL (40-60); HEMOLYSIS 17 (0-50); LDL Cholesterol Calculated 127 mg/dL (<100); Potassium 3.8 mmol/L (3.4-5.1); Sodium 139 mmol/L (137-145); Total Protein 7.9 g/dL (6.3-8.2); Triglycerides 124 mg/dL (35-150)
[2021-02-04 12:29] LABS: TSH w/ Reflex to FT4 2.85 uIU/mL (0.47-4.68)
== END ==
PROVIDERS: PCP Family Medicine; Referring Provider Family Medicine; Visit Provider Family Medicine
DX: E11.9 Type 2 diabetes mellitus without complications (principal); I10 Essential (primary) hypertension
CPT/HCPCS: 36415; 80053; 80061; 83036; 84443

== ENCOUNTER → 2022-05-27 10:43 | Outpatient (CLI) | payer MEDICARE, MEDICAID, SELFPAY ==
[2018-07-10 14:09] VITALS: BMI 48.6
--- NOTE | 2022-05-27 | DI.MG.S_ITS ---
BILATERAL DIGITAL SCREENING MAMMOGRAM 3D/2D WITH CAD: 05/27/2022 CLINICAL: Baseline exam. Routine screening. Family history of breast cancer. No prior exams were available for comparison. Both breasts are heterogeneously dense, which may obscure small masses (category c / 51-75% glandular tissue). Current study was also evaluated with a Computer Aided Detection (CAD) system. There is a possible focal asymmetry in the left breast at 1 o'clock middle depth. No other significant masses, calcifications, or other findings are seen in either breast. IMPRESSION: INCOMPLETE: NEEDS ADDITIONAL IMAGING EVALUATION The possible focal asymmetry in the left breast is indeterminate. Additional views with possible ultrasound are recommended. Based on the Tyrer Cuzick model (a risk assessment model) the patient's lifetime risk is 6.5% and her 10 year risk is 0.9%. According to the ACR, ACS, and NCCN guidelines, an annual breast MRI exam along with mammogram is recommended if the patient's lifetime risk is 20% or greater. This exam was interpreted at Station ID: [id number]. NOTE: For mammograms, a report in lay terms will be sent to the patient. Approximately 15% of breast malignancies will not be visualized mammographically. In the management of a palpable breast mass, a negative mammogram must not discourage biopsy of a clinically suspicious lesion. Electronically Signed By: Emilio Hudson M.D., jr/shilpi:05/27/2022 14:03:36 letter sent: Additional Imaging Needed ACR BI-RADS Category 0: Incomplete 3340F
== END ==
PROVIDERS: PCP Family Medicine; Referring Provider Family Medicine; Visit Provider Family Medicine
DX: Z12.31 Encounter for screening mammogram for malignant neoplasm of breast (principal); Z80.3 Family history of malignant neoplasm of breast
CPT/HCPCS: 77063; 77067

== ENCOUNTER → 2022-06-03 11:27 | Outpatient (CLI) | payer MEDICARE, MEDICAID, SELFPAY ==
[2018-07-10 14:09] VITALS: BMI 48.6
--- NOTE | 2022-06-03 11:31 | DI.RAD.S_ITS ---
PROCEDURE: XR CERVICAL SPINE 2V OR 3V INDICATIONS: eval cause of neuropathy TECHNIQUE: 3 view(s) of the cervical spine were acquired. COMPARISON: None. FINDINGS: Bones: No fractures or dislocations to the T1 level. The lateral masses of C1 appear intact on the odontoid view. No suspicious bony lesions. Mild disc space narrowing at C4-5 consistent with disc disease. Soft tissues: No prevertebral soft tissue swelling. IMPRESSION: Mild disc space narrowing at C4-5 consistent with disc disease. Otherwise no significant abnormality. Dictated by: Chuck Ramos M.D. on 06/04/2022 at 5:32 Approved by: Chuck Ramos M.D. on 06/04/2022 at 5:34
== END ==
PROVIDERS: PCP Family Medicine; Referring Provider Family Medicine; Visit Provider Family Medicine
DX: M54.12 Radiculopathy, cervical region (principal)
CPT/HCPCS: 72040

== ENCOUNTER → 2023-01-07 09:28 | Outpatient (CLI) | payer MEDICARE, MEDICAID, SELFPAY ==
[2018-07-10 14:09] VITALS: BMI 48.6
--- NOTE | 2023-01-07 | DI.US.S_ITS ---
LIMITED ULTRASOUND OF LEFT BREAST: 01/07/2023 CLINICAL: Additional views of Left breast. Comparison is made to exams dated: 01/07/2023 mammogram and 05/27/2022 mammogram - [facility]. Color flow and real-time ultrasound of the left breast 1-3 o'clock region were performed. Gallegos scale images of the real-time examination were reviewed. No significant abnormalities were seen sonographically in the left breast in the region of the possible asymmetry. IMPRESSION: PROBABLY BENIGN No ultrasound correlate for the possible asymmetry in the left breast. A follow-up mammogram in 6 months is recommended to demonstrate stability. Exam findings were conveyed to the patient. This exam was interpreted at Station ID: [id number]. Electronically Signed By: Krzysztof Quinn M.D. slc/:01/07/2023 12:05:30 letter sent: Followup Recommended Ultrasound BI-RADS: 3 Probably benign
--- NOTE | 2023-01-07 | DI.MG.S_ITS ---
UNILATERAL LEFT DIGITAL DIAGNOSTIC MAMMOGRAM 3D/2D WITH ADDITIONAL VIEWS: 01/07/2023 CLINICAL: Additional evaluation requested from prior study. Comparison is made to exam dated: 05/27/2022 mammogram - [facility]. The left breast is heterogeneously dense, which may obscure small masses (category c / 51-75% glandular tissue). There is a mass in the left breast seen on the craniocaudal view only. There also is a focal asymmetry in the left breast at 3 o'clock middle depth. This is less prominent. No other significant masses or calcifications are seen in the breast. IMPRESSION: INCOMPLETE: NEEDS ADDITIONAL IMAGING EVALUATION The focal asymmetry in the left breast at 3 o'clock middle depth resembles a cyst and is indeterminate. A targeted ultrasound is recommended and will immediately follow. Based on the Tyrer Cuzick model (a risk assessment model) the patient's lifetime risk is 6.4% and her 10 year risk is 0.9%. According to the ACR, ACS, and NCCN guidelines, an annual breast MRI exam along with mammogram is recommended if the patient's lifetime risk is 20% or greater. This exam was interpreted at Station ID: [id number]. NOTE: For mammograms, a report in lay terms will be sent to the patient. Approximately 15% of breast malignancies will not be visualized mammographically. In the management of a palpable breast mass, a negative mammogram must not discourage biopsy of a clinically suspicious lesion. Electronically Signed By: Krzysztof Quinn M.D. slc/:01/07/2023 10:04:25 ACR BI-RADS Category 0: Incomplete 3340F
== END ==
PROVIDERS: PCP Family Medicine; Referring Provider Family Medicine; Visit Provider Family Medicine
DX: R92.8 Other abnormal and inconclusive findings on diagnostic imaging of breast
CPT/HCPCS: 76642; 77065; G0279

== ENCOUNTER 2023-11-28 12:36 | Emergency (ER) | payer MEDICARE, MEDICAID, SELFPAY ==
[2018-07-10 14:09] VITALS: BMI 48.6
[2023-11-28] VITALS (8 sets, daily range): BP systolic 120–151; BP diastolic 62–88; PULSE 70–109; RESP 15–20; TEMP 36.6; O2SAT 97–100; BMI 44.3
--- NOTE | 2023-11-28 15:07 | DI.CT.S_ITS ---
PROCEDURE: CT ANGIO CHEST PE PROTOCOL INDICATIONS: chest pain; APL; hx of PE TECHNIQUE: After the administration of intravenous contrast, 2 mm thick sections acquired from the pulmonary apices to the posterior costophrenic angles. 3-dimensional maximum intensity projection (MIP) coronal and sagittal reformats were then acquired through the thorax. For radiation dose reduction, the following was used: automated exposure control, adjustment of mA and/or kV according to patient size. COMPARISON: [facility], CT, CT ANGIO CHEST PE PROTOCOL, 01/08/2020, 22:48. FINDINGS: Image quality: Diagnostic. Pulmonary arteries: Pulmonary arteries are normal in size, and demonstrate no intraluminal filling defects to suggest central pulmonary embolism. Lower Neck: No enlarged lymph nodes. Thyroid: No thyroid nodules which require sonographic follow up, per consensus guidelines. Axillae: No enlarged lymph nodes. Chest Wall: Unremarkable. Bones: Unremarkable. Lungs and Pleura: No pneumothorax or pleural effusions. No consolidation or suspicious nodules. Heart: Heart size is normal. No pericardial effusion. Thoracic Vessels: No aortic aneurysm. Mediastinum and Svetlana: No enlarged lymph nodes. Esophagus: No wall thickening. No hiatal hernia. Upper Abdomen: Visualized upper abdomen solid organs and bowel loops appear normal. IMPRESSION: No pulmonary embolus. No acute pulmonary process. Dictated by: Lilia Mendoza M.D. on 11/28/2023 at 16:24 Approved by: Lilia Mendoza M.D. on 11/28/2023 at 16:25
[2023-11-28 15:20] LABS: Add Manual Diff / Slide Review NO; Basophils Absolute Auto 100 /uL (0-100); Basophils Percent Auto 1.1 % (0-2); Eosinophils Absolute Auto 100 /uL (0-450); Eosinophils Percent Auto 0.9 % (2-4); Hematocrit 42.6 % (36-46); Hemoglobin 14.3 g/dL (12.0-16.0); Lymphocytes Absolute Auto 1900 /uL (1100-4500); Lymphocytes Percent Auto 22.9 % (25-40); Mean Corpuscular HGB Conc 33.6 % (30-36); Mean Corpuscular Volume 86.3 fL (80-100); Monocytes Absolute Auto 400 /uL (0-900); Monocytes Percent Auto 4.3 % (3-14); Neutrophils Absolute Auto 5800 /uL (1500-7000); Neutrophils Percent Auto 70.8 % (50-75); Platelet Count 163 X10^3/uL (150-400); Red Blood Cell Count 4.93 X10^6/uL (4.0-5.2); Red Cell Distribution Width 13.6 % (11.6-14.8); White Blood Cell Count 8.1 X10^3/uL (4.5-11.0)
[2023-11-28 15:36] LABS: Alanine Aminotransferase 42 IU/L (<35); Albumin 4.7 g/dL (3.5-5.0); Albumin Globulin Ratio 1.6 (1.0-2.8); Alkaline Phosphatase 50 U/L (38-126); Aspartate Aminotransferase 82 IU/L (14-36); BUN Creatinine Ratio 19.4 (6-22); Bilirubin Total 0.4 mg/dL (0.2-1.3); Blood Urea Nitrogen 12 mg/dL (7-17); Calcium 9.7 mg/dL (8.4-10.2); Carbon Dioxide 29 mmol/L (22-32); Chloride 107 mmol/L (98-107); Estimated Glomerular Filt Rate > 60 mL/min (>60); Glucose 89 mg/dL (70-100); HEMOLYSIS < 15 (0-50); Lipase 98 U/L (23-300); Potassium 3.9 mmol/L (3.4-5.1); Sodium 138 mmol/L (137-145); Total Protein 7.7 g/dL (6.3-8.2)
[2023-11-28] MEDS: ALBUTEROL 2.5 MG/3 ML NEB (ADULT) INH (15:43)
[2023-11-28 15:48] LABS: NT-proBNP (BNP-Adult 18+) 161 pg/mL (<125); Troponin I < 0.012 ng/mL (0.01-0.034)
[2023-11-28 15:51] LABS: Creatine Kinase 4268 U/L (30-135)
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
--- NOTE | 2023-11-28 18:49 | PC.NURSE ---
Patient reports decrease in shortness of breath after breathing treatment.
== END 2023-11-28 18:47 | disposition home or self-care (01) ==
PROVIDERS: Student in an Organized Health Care Education/Training Program; Emergency Provider Emergency Medicine; PCP Family Medicine
DX: R06.2 Wheezing (principal); R07.9 Chest pain, unspecified
CPT/HCPCS: 36415; 71275; 80053; 82550; 83690; 83880; 84484; 85025; 93005; 94640; 99284; J7613; Q9967

== ENCOUNTER → 2024-02-02 09:13 | Outpatient (CLI) | payer MEDICARE, MEDICAID, SELFPAY ==
[2018-07-10 14:09] VITALS: BMI 48.6
--- NOTE | 2024-02-02 09:15 | DI.RAD.S_ITS ---
PROCEDURE: XR CERVICAL SPINE 2V OR 3V INDICATIONS: eval neck pain TECHNIQUE: 4 view(s) of the cervical spine were acquired. COMPARISON: [facility], [place], XR CERVICAL SPINE 2V OR 3V, 06/03/2022, 11:36. FINDINGS: Bones: No fractures or dislocations to the T1 level. The lateral masses of C1 appear intact on the odontoid view. No suspicious bony lesions. Loss of the normal cervical lordosis, likely positional. Mild disc height loss at all levels. Multilevel facet arthrosis, most prominent at the right side of C4-5, C5-6. Soft tissues: No prevertebral soft tissue swelling. IMPRESSION: Mild, multilevel degenerative disc disease and facet arthrosis. This has mildly progressed since 2021. Dictated by: Benjy Grant M.D. on 02/02/2024 at 10:46 Approved by: Benjy Grant M.D. on 02/02/2024 at 10:49
== END ==
PROVIDERS: PCP Family Medicine; Referring Provider Family Medicine; Visit Provider Family Medicine
DX: S16.1XXA Strain of muscle, fascia and tendon at neck level, initial encounter (principal); M50.31 Other cervical disc degeneration, high cervical region; M47.812 Spondylosis without myelopathy or radiculopathy, cervical region; X58.XXXA Exposure to other specified factors, initial encounter
CPT/HCPCS: 72040

== ENCOUNTER 2024-06-17 12:08 | Emergency (ER) | payer MEDICARE, MEDICAID, SELFPAY ==
[2018-07-10 14:09] VITALS: BMI 48.6
[2024-06-17] VITALS (7 sets, daily range): BP systolic 143–146; BP diastolic 74–79; PULSE 86–108; RESP 18–24; TEMP 36.7; O2SAT 93–97; BMI 47.6
--- NOTE | 2024-06-17 12:19 | DI.RAD.S_ITS ---
PROCEDURE: XR CHEST 1V INDICATIONS: Shortness of breath TECHNIQUE: One view of the chest was acquired. COMPARISON: [facility], [place], XR CHEST 1V, 01/08/2020, 20:57. FINDINGS: Surgical changes and devices: None. Lungs and pleura: There is focal consolidation within the right middle lobe. No effusion or pneumothorax.. Mediastinum: Mediastinal contours appear normal. Heart size is normal. Bones and chest wall: No suspicious bony lesions. Overlying soft tissues appear unremarkable. IMPRESSION: Right middle lobe pneumonia. Dictated by: Tess Daly M.D. on 06/17/2024 at 12:10 Approved by: Tess Daly M.D. on 06/17/2024 at 12:10
--- NOTE | 2024-06-17 12:27 | EKG_ITS ---
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
--- NOTE | 2024-06-17 12:32 | PC.NURSE ---
patient stated fevers at home ranging from 101.0 to 107.0 with temporal thermometer. She is afebrile today without taking any antipyretics at home prior to being seen. She does have a productive cough and is not labored and is able to speak in full sentences clearly. She is currently being evaluated by RT. She has a history of smoking and is currently working on quitting.
[2024-06-17 12:34] LABS: Add Manual Diff / Slide Review NO; Basophils Absolute Auto 0 /uL (0-100); Basophils Percent Auto 0.2 % (0-2); Eosinophils Absolute Auto 100 /uL (0-450); Hematocrit 40.6 % (36-46); Hemoglobin 13.7 g/dL (12.0-16.0); Lymphocytes Absolute Auto 1000 /uL (1100-4500); Lymphocytes Percent Auto 13.5 % (25-40); Mean Corpuscular HGB Conc 33.7 % (30-36); Mean Corpuscular Hemoglobin 28.5 PG (26-34); Mean Corpuscular Volume 84.5 fL (80-100); Monocytes Absolute Auto 500 /uL (0-900); Monocytes Percent Auto 6.9 % (3-14); Neutrophils Absolute Auto 5900 /uL (1500-7000); Neutrophils Percent Auto 78.4 % (50-75); Platelet Count 159 X10^3/uL (150-400); Red Cell Distribution Width 12.7 % (11.6-14.8); White Blood Cell Count 7.6 X10^3/uL (4.5-11.0)
[2024-06-17 12:41] LABS: INR 1.1 (0.9-1.3); Prothrombin Time 12.5 SECONDS (9.4-12.5)
[2024-06-17 12:44] LABS: Alanine Aminotransferase 20 IU/L (<35); Albumin 4.2 g/dL (3.5-5.0); Albumin Globulin Ratio 1.3 (1.0-2.8); Alkaline Phosphatase 48 U/L (38-126); Aspartate Aminotransferase 19 IU/L (14-36); BUN Creatinine Ratio 10.9 (6-22); Bilirubin Total 0.6 mg/dL (0.2-1.3); Blood Urea Nitrogen 6 mg/dL (7-17); Carbon Dioxide 21 mmol/L (22-32); Chloride 106 mmol/L (98-107); Estimated Glomerular Filt Rate > 60 mL/min (>60); Globulin 3.3 g/dL (1.7-4.1); Glucose 118 mg/dL (70-100); HEMOLYSIS 24 (0-50); Potassium 3.6 mmol/L (3.4-5.1); Sodium 137 mmol/L (137-145); Total Protein 7.5 g/dL (6.3-8.2)
[2024-06-17] MEDS: ALBUTEROL 2.5 MG/3 ML NEB (ADULT) INH (12:47)
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
[2024-06-17 12:55] LABS: NT-proBNP (BNP-Adult 18+) 35 pg/mL (<125); Troponin I < 0.012 ng/mL (0.01-0.034)
--- NOTE | 2024-06-17 13:00 | DI.CT.S_ITS ---
PROCEDURE: CT ANGIO CHEST PE PROTOCOL INDICATIONS: short of breath hx mulitple PE TECHNIQUE: After the administration of intravenous contrast, 2 mm thick sections acquired from the pulmonary apices to the posterior costophrenic angles. 3-dimensional maximum intensity projection (MIP) coronal and sagittal reformats were then acquired through the thorax. For radiation dose reduction, the following was used: automated exposure control, adjustment of mA and/or kV according to patient size. COMPARISON: [facility], CT, CT ANGIO CHEST PE PROTOCOL, 11/28/2023, 15:13. FINDINGS: Image quality: Diagnostic. Pulmonary arteries: Pulmonary arteries are normal in size, and demonstrate no intraluminal filling defects to suggest central pulmonary embolism. Lower Neck: No enlarged lymph nodes. Thyroid: No thyroid nodules which require sonographic follow up, per consensus guidelines. Axillae: No enlarged lymph nodes. Chest Wall: Unremarkable. Bones: Unremarkable. Lungs and Pleura: No pneumothorax or pleural effusions. Again seen is right middle lobe consolidation as well as mild ground-glass opacity within the medial left lower lobe. Heart: Heart size is normal. No pericardial effusion. Thoracic Vessels: No aortic aneurysm. Mediastinum and Svetlana: No enlarged lymph nodes. Esophagus: No wall thickening. No hiatal hernia. Upper Abdomen: Visualized upper abdomen solid organs and bowel loops appear normal. IMPRESSION: No pulmonary embolus. Right middle lobe pneumonia. Dictated by: Tess Daly M.D. on 06/17/2024 at 12:49 Approved by: Tess Daly M.D. on 06/17/2024 at 12:53
[2024-06-17 13:09] LABS: Influenza A - CEPHEID Flu A NEGATIVE (NEGATIVE); Influenza B - CEPHEID Flu B NEGATIVE (NEGATIVE); Respiratory Syncytial Virus Negative (Negative)
[2024-06-17 13:13] LABS: COVID-19 CEPHEID 4-PLEX PCR Negative (Negative)
[2024-06-17] MEDS: CEFDINIR 300 MG CAPSULE PO (14:13)
[2024-06-17] MEDS: AZITHROMYCIN 250 MG TABLET 500 MG PO (14:13)
== END 2024-06-17 14:20 | disposition home or self-care (01) ==
PROVIDERS: Emergency Provider Emergency Medicine; PCP Family Medicine
DX: J18.9 Pneumonia, unspecified organism (principal); R05.9 Cough, unspecified; R06.02 Shortness of breath; Z11.52 Encounter for screening for COVID-19
CPT/HCPCS: 0241U; 36415; 71045; 71275; 80053; 83605; 83880; 84484; 85025; 85610; 93005; 93010; 94640; 99284; J7613; Q9967

== ENCOUNTER → 2025-05-22 14:19 | Outpatient (CLI) | payer MEDICARE, OTHER, SELFPAY ==
[2018-07-10 14:09] VITALS: BMI 48.6
== END ==
PROVIDERS: PCP Family Medicine; Visit Provider Family Medicine
DX: R30.9 Painful micturition, unspecified (principal)
CPT/HCPCS: 87077; 87086

== ENCOUNTER → 2025-06-14 12:23 | Outpatient (CLI) | payer MEDICARE, OTHER, SELFPAY ==
[2018-07-10 14:09] VITALS: BMI 48.6
[2025-06-14 13:20] LABS: Hematocrit 42.9 % (36-46); Hemoglobin 14.9 g/dL (12.0-16.0); Mean Corpuscular HGB Conc 34.8 % (30-36); Mean Corpuscular Hemoglobin 29.5 PG (26-34); Mean Corpuscular Volume 84.9 fL (80-100); Platelet Count 151 X10^3/uL (150-400)
[2025-06-14 13:32] LABS: Hemoglobin A1C% w Est Avg Glu 5.2 % (4.0-6.0)
[2025-06-14 13:47] LABS: Alanine Aminotransferase 21 IU/L (<35); Albumin 4.5 g/dL (3.5-5.0); Albumin Globulin Ratio 1.6 (1.0-2.8); Alkaline Phosphatase 50 U/L (38-126); Blood Urea Nitrogen 9 mg/dL (7-17); Calcium 9.7 mg/dL (8.4-10.2); Carbon Dioxide 23 mmol/L (22-32); Chloride 107 mmol/L (98-107); Cholesterol 190 mg/dL (140-199); Estimated Glomerular Filt Rate > 60 mL/min (>60); Globulin 2.9 g/dL (1.7-4.1); Glucose 91 mg/dL (70-99); HDL Cholesterol 58 mg/dL (40-60); HEMOLYSIS < 15 (0-50); Potassium 4.4 mmol/L (3.4-5.1); Sodium 137 mmol/L (137-145); Total Protein 7.4 g/dL (6.3-8.2); Triglycerides 80 mg/dL (35-150)
== END ==
PROVIDERS: PCP Family Medicine; Referring Provider Family Medicine; Visit Provider Family Medicine
DX: Z13.220 Encounter for screening for lipoid disorders (principal); Z13.1 Encounter for screening for diabetes mellitus; E28.2 Polycystic ovarian syndrome; E78.2 Mixed hyperlipidemia; T43.505A Adverse effect of unspecified antipsychotics and neuroleptics, initial encounter
CPT/HCPCS: 36415; 80053; 80061; 83036; 85027